=== PATIENT | female | born 1985 | race Caucasian/White ===

== ENCOUNTER → 2017-03-29 | Outpatient (CLI) | payer MEDICAID ==
[~2017-03-29] MED LIST: ABILIFY10 MG PO; ABILIFY5 MG PO; AMBIEN5 MG PO; BELSOMRA10 MG PO; CLARITIN10 MG PO; LASIX20 MG PO; LEXAPRO20 MG PO; NAPROSYN500 MG PO; PRENATAL 1+1)(P1 TAB PO; PRISTIQ 50 MG E50 MG PO; PRISTIQ ER100 MG PO; PROVENTIL OR V6.7 GM INH; PROVIGIL200 MG PO; SINGULAIR10 MG PO; TUMS200 MG PO; VISTARIL50 MG PO; VYVANSE30 MG PO; VYVANSE70 MG PO; XANAX XR0.5 MG; XANAX XR0.5 MG PO; XANAX0.25 MG PO; XANAX1 MG PO
== END | disposition disaster alternative care site (69) ==
LOC: GRAD 16:30
DX: O20.9 Hemorrhage in early pregnancy, unspecified (principal); Z3A.17 17 weeks gestation of pregnancy; Z87.59 Personal history of other complications of pregnancy, childbirth and the puerperium

== ENCOUNTER 2017-05-16 18:48 | Outpatient (CLI) | payer MEDICAID ==
[~2017-05-16] VITALS: Ht 167.6 cm; Wt 108.1 kg
[~2017-05-16 18:48] MED LIST changes: -PRENATAL 1+1)(P1 TAB PO; -TUMS200 MG PO
[2017-05-16 21:01] LABS: BLOOD URINE 50 /UL (NEGATIVE); COLOR URINE YELLOW (YELLOW); GLUCOSE URINE NEGATIVE (NEGATIVE); KETONE URINE 50 mg/dL (NEGATIVE); LEUKOCYTES URINE 500 /UL (NEGATIVE); NITRITE URINE POSITIVE (NEGATIVE); PROTEIN URINE 100 mg/dL (NEGATIVE); SPEC GRAVITY URINE 1.025 (1.003-1.035); TURBIDITY URINE 4+ (CLEAR); UROBILINOGEN URINE 4 mg/dL (NORMAL)
[2017-05-16 21:11] LABS: EPITHELIAL URINE FULL FIELD #/HPF (NEGATIVE); WBC URINE 50-100 #/HPF (NEGATIVE)
[2017-05-16 21:12] LABS: BACTERIA URINE MANY (NEGATIVE); CRYSTALS URINE CALCIUM OXALATE (NEGATIVE)
[2017-05-16 21:27] LABS: COCAINE NEGATIVE (NEGATIVE); OPIATES NEGATIVE (NEGATIVE)
[2017-05-16 21:31] LABS: AMPHETAMINE POSITIVE (NEGATIVE); BARBITURATE NEGATIVE (NEGATIVE)
[2017-05-16] MEDS ORDERED: PRENATAL 1+1)(P1 TAB PO (23:01)
[2017-05-16] MEDS ORDERED: TUMS200 MG PO (23:02)
== END 2017-05-17 00:30 | disposition disaster alternative care site (69) ==
LOC: GOBM 18:48 → GMED 18:48 → GOBS 18:48 → GMED 05-17 00:30
PROVIDERS: Family Medicine
DX: O99.89 Other specified diseases and conditions complicating pregnancy, childbirth and the puerperium (principal); R10.9 Unspecified abdominal pain; M54.5 Low back pain; O99.52 Diseases of the respiratory system complicating childbirth; J45.909 Unspecified asthma, uncomplicated; Z3A.23 23 weeks gestation of pregnancy; Z88.0 Allergy status to penicillin; Z98.890 Other specified postprocedural states
CPT/HCPCS: G0463; J0696; J2001; J7030

== ENCOUNTER 2017-05-20 18:43 | Outpatient (CLI) | payer MEDICAID ==
[~2017-05-20] VITALS: Ht 170.2 cm
--- NOTE | ~2017-05-20 | HP ---
PATIENT'S NAME: KATHERINE FRANCO [facility] AGE: 32 Y [address] ROOM: [place] [id number] LOCATION: [facility] ADMIT DATE: 05/20/2017 History & Physical DISCHARGE DATE: 05/20/2017 FAMILY PHYSICIAN: Physician, Unknown ATTENDING PHYSICIAN: Madeline Reddy DATE OF SERVICE: CHIEF COMPLAINT: Left-sided back pain and question of contractions. HISTORY OF PRESENT ILLNESS: The patient is a 32-year-old 5, para 2-1-1-3, who is currently about 24 weeks' gestation per her history. She was just here on with complaints of abdominal pain and had a UTI, although no urine culture was done. She was given a gram of Rocephin and placed on p.o. Keflex. Her urine today shows that infection has resolved. She is complaining of some discharge consistent with yeast from the antibiotic. This was checked for by wet prep on and that was unremarkable at that time. She woke up about [address] [facility] and had some significant left-sided low back pain. The pain did not really radiate anywhere. Really since she has been here, she has been relatively pain free, down to 1 to 2 over 10 on the pain scale. It is dramatically better. She felt like maybe she has some Sean Helms, but currently she has been extremely quiet here on the monitor without significant contractions. Heart rates have been seen without difficulty. It was felt that she is not actively jonas and not in labor, although our services have not checked as we were not seeing any contractions. PAST MEDICAL HISTORY: Significant Illnesses, none. She has history of methamphetamine use apparently based on her prior UA. FAMILY HISTORY: Unremarkable. SOCIAL HISTORY: She is currently incarcerated in [facility]. REVIEW OF SYSTEMS: No chest pain, pressure, shortness of breath, orthopnea, or PND. PHYSICAL EXAMINATION: GENERAL: The patient is nontoxic-appearing female, who appears her stated age, otherwise in no acute distress. HEENT: Benign. PATIENT'S NAME: KATHERINE FRANCO [facility] AGE: 32 Y [address] ROOM: [place] [address] LOCATION: [facility] ADMIT DATE: 05/20/2017 History & Physical DISCHARGE DATE: 05/20/2017 FAMILY PHYSICIAN: Physician, Unknown ATTENDING PHYSICIAN: Madeline Reddy HEART: Regular rate and rhythm. LUNGS: Clear to auscultation without wheezes, rhonchi, or rales. ABDOMEN: Soft, nontender, nondistended. Bowel sounds are positive. No hepatosplenomegaly. No guarding or rebound. EXTREMITIES: No clubbing, cyanosis, or edema. NEURO: No focal deficits. CERVIX: Not performed. LABORATORY DATA: Her urine today shows 2-5 white cells, 10-20 epithelials, rare bacteria, negative for red cells, and negative for nitrite. ASSESSMENT: 1. A 32-year-old white female, who is currently 5, para 2-1-1-3, who is approximately 24 weeks' gestation, who woke up with severe right-sided back pain. This appears to be musculoskeletal. Certainly, she is not jonas though, there is no evidence of any urinary tract infection, that has resolved. 2. Urinary tract infection, resolved. PLAN: We will go ahead and send her back to the [facility]. She will continue with observation there, go ahead and continue to finish her antibiotics. I will go ahead and give her some miconazole vaginal suppositories for her ease, and she will establish care with Dr. Dial as soon as she is able to. She voiced understanding of that plan as the [facility] police detention attendant who was with her. ELEAZAR ATKINS MD TAB/modl /[id number] D: [id number] T: [id number] HISTORY & PHYSICAL
[~2017-05-20 18:43] MED LIST changes: +PRENATAL 1+1)(P1 TAB PO; +TUMS200 MG PO
[2017-05-20 19:46] LABS: BILIRUBIN URINE NEGATIVE (NEGATIVE); BLOOD URINE NEGATIVE /UL (NEGATIVE); COLOR URINE YELLOW (YELLOW); GLUCOSE URINE 100 mg/dL (NEGATIVE); KETONE URINE NEGATIVE (NEGATIVE); LEUKOCYTES URINE 100 /UL (NEGATIVE); NITRITE URINE NEGATIVE (NEGATIVE); PROTEIN URINE NEGATIVE (NEGATIVE); SPEC GRAVITY URINE 1.015 (1.003-1.035); TURBIDITY URINE 1+ (CLEAR); UROBILINOGEN URINE NORMAL (NORMAL)
[2017-05-20 19:53] LABS: RBC URINE NEGATIVE #/HPF (NEGATIVE)
[2017-05-20 19:54] LABS: BACTERIA URINE RARE (NEGATIVE); YEAST URINE FEW (NEGATIVE)
== END 2017-05-20 21:15 | disposition other institution (70) ==
LOC: GOBS 18:43 → GOBM 18:43
PROVIDERS: Obstetrics & Gynecology
DX: O99.89 Other specified diseases and conditions complicating pregnancy, childbirth and the puerperium (principal); M54.9 Dorsalgia, unspecified; O99.332 Smoking (tobacco) complicating pregnancy, second trimester; Z3A.24 24 weeks gestation of pregnancy; Z88.0 Allergy status to penicillin
CPT/HCPCS: G0463